=== PATIENT | male | born 1985 | race Caucasian/White ===

== ENCOUNTER 2020-07-22 18:01 | Emergency (ER) | payer OTHER ==
[~2020-07-22] VITALS: Ht 157.5 cm; Wt 65.8 kg
[2020-07-22 18:01] VITALS: BP 118/76
[2020-07-22] MEDS ORDERED: ASA81BEC PO (18:06)
[2020-07-22] MEDS ORDERED: PREDNISONE 20 M20 MG PO (18:51)
[2020-07-22] MEDS ORDERED: PEPCID20 MG PO (18:51)
[2020-07-22] MEDS ORDERED: DIPHENHIST50 MG PO (18:51)
== END 2020-07-22 18:59 ==
LOC: ER 18:01
DX: R21 Rash and other nonspecific skin eruption (principal); T78.1XXA Other adverse food reactions, not elsewhere classified, initial encounter; F17.210 Nicotine dependence, cigarettes, uncomplicated; Z88.1 Allergy status to other antibiotic agents; Z88.8 Allergy status to other drugs, medicaments and biological substances; Z79.82 Long term (current) use of aspirin; Y92.89 Other specified places as the place of occurrence of the external cause